=== PATIENT | male | born 1970 | race Caucasian/White ===

== ENCOUNTER 2016-07-27 21:49 | Emergency (ER) | payer MEDICAID ==
--- NOTE | 2016-07-27 22:17 | Emergency Department Record ---
History of Present Illness - General Chief Complaint: Neck Injury/Pain Stated Complaint: LEFT SHOULDER PAIN Time Seen by Provider: 07/27/16 22:12 Source: Patient Mode of Arrival: Ambulatory Limitations: No limitations - History of Present Illness Initial Comments: 45 yo male presents with neck pain after injury at noon today. He stood up and hit a shelf. He has had increasing pain since. He had neck surgery in the past of herniated disc. No numbness or tingling. No weakness. He has bilateral chronic rotator cuff tears. No new shoulder injuries. He is working with an orthopedist in [place] to schedule rotator cuff repair. MD Complaint: Neck injury, Neck pain Onset/Timin -: Days(s) Severity: Constant Severity scale (1-10): 10 Quality: Aching Improves With: None Worsens With: Movement of neck Context: Direct blow Associated Symptoms: None Treatments Prior to Arrival: None - Related Data Home Medications Medication Instructions Recorded Confirmed Last Taken Lisinopril [Zestril] 40 mg PO DAILY 07/27/16 07/27/16 Unknown Metformin HCl 1,000 mg PO BID 07/27/16 07/27/16 Unknown Allergies Allergy/AdvReac Type Severity Reaction Status Date / Time No Known Drug Allergies Allergy Verified 07/27/16 22:01 Travel Screening - Travel/Exposure Within Last 30 Days Have you traveled within the last 30 days?: No Review of Systems Constitutional: Denies: Chills, Fever, Malaise, Weakness Eyes: Denies: Eye discharge ENT: Denies: Congestion, Throat pain Respiratory: Denies: Cough, Dyspnea, Hemoptysis, Stridor, Wheezes Cardiovascular: Denies: Chest pain, Palpitations, Syncope Endocrine: Denies: Fatigue Gastrointestinal: Denies: Abdominal pain, Diarrhea, Nausea, Vomiting Genitourinary: Denies: Dysuria, Frequency, Hematuria Musculoskeletal: Reports: As per HPI, Arthralgia, Myalgia, Neck pain Skin: Denies: Bruising, Change in color, Rash Neurological: Denies: Abnormal gait, Confusion, Headache, Numbness, Paresthesias , Tingling, Tremors, Vertigo, Weakness Psychiatric: Denies: Anxiety Hematological/Lymphatic: Denies: Anemia, Blood Clots, Easy bleeding, Easy bruising, Swollen glands Past Medical History - SOCIAL HISTORY Smoking Status: Current every day smoker Alcohol Use: Occassional Drug Use: None - RESPIRATORY Hx Respiratory Disorders: No - CARDIOVASCULAR Hx Cardio Disorders: Yes Hx Hypertension: Yes - NEURO Hx Neuro Disorders: No - GI Hx GI Disorders: Yes Hx Reflux: Yes - Hx Genitourinary Disorders: No - ENDOCRINE Hx Endocrine Disorders: Yes Hx Diabetes: Yes (DM2) - MUSCULOSKELETAL Hx Musculoskeletal Disorders: No - PSYCH Hx Psych Problems: No - HEMATOLOGY/ONCOLOGY Hx Hematology/Oncology Disorders: No Family Medical History Any Significant Family History?: No Physical Exam - General General Appearance: Alert, Oriented x3, Cooperative, No acute distress Limitations: No limitations - Head Head exam: Normocephalic, Normal inspection. negative: Atraumatic Head exam detail: Abrasion (3mm superficial scalp abrasion, no swelling). negative: General tenderness, Laceration - Eye Eye exam: Normal appearance, PERRL. negative: Conjunctival injection - ENT ENT exam: Normal exam. negative: Mucous membranes moist Ear exam: Normal external inspection Nasal Exam: Normal inspection Mouth exam: Normal external inspection Teeth exam: Normal inspection Throat exam: Normal inspection. negative: Tonsillar erythema, Tonsillomegaly - Neck Neck exam: Normal inspection, Full ROM, Tenderness. negative: Lymphadenopathy, Meningismus, Thyromegaly - Respiratory Respiratory exam: Normal lung sounds bilaterally. negative: Accessory muscle use, Chest wall tenderness, Decreased breath sounds, Respiratory distress, Rhonchi, Stridor, Wheezes - Cardiovascular Cardiovascular Exam: negative: Regular rate, Normal rhythm, Normal heart sounds - GI/Abdominal GI/Abdominal exam: Soft - Rectal Rectal exam: Deferred - exam: Deferred - Extremities Extremities exam: Normal inspection, Normal capillary refill, Tenderness. negative: Full ROM Image of Full Body: 1 - Bilateral shoulder tenderness, pain with ROM, no deformity. These are chronic issues the patient states. No new changes. - Back Back exam: Reports: Normal inspection, Full ROM. Denies: Muscle spasm, Paraspinal tenderness, Tenderness, Vertebral tenderness - Neurological Neurological exam: Alert, Normal gait, Oriented X3. negative: Abnormal gait, Altered, Motor sensory deficit - Psychiatric Psychiatric exam: Normal affect, Normal mood. negative: Agitated, Anxious - Skin Skin exam: Dry, Intact, Normal color, Warm Course Vital Signs 07/27/16 21:56 Temperature 98 F Pulse Rate [ 113 H Pulse Ox Probe] Respiratory 20 Rate Blood Pressure 166/95 [Right Arm] Pulse Ox 98 - Reevaluation(s) Reevaluation #1: EMR reviewed No prior visits [facility] reviewed. No pattern of abuse. Last entry was [place] 12. 07/27/16 22:22 Reevaluation #2: CT from [facility] reviewed No definite fracture, degenerative changes, disc bulge eccentric to the right C4 -C5 with mild spinal canal stenosis. Mild stenosis on C5-C6 Fusion at C6-C7 no acute fracture. I called [facility] to clarify the report. "And T1 spinous process fracture" Dr Shannon stated it was mis-dictated and should read "chronic T1 spinous process fracture" 07/27/16 23:16 Disposition Disposition: Discharge Clinical Impression: Cervical strain, acute Qualifiers: Encounter type: initial encounter Qualified Code(s): S16.1XXA - Strain of muscle, fascia and tendon at neck level, initial encounter Disposition: Home, Self-Care Condition: (1) Good Instructions: Cervical Sprain (ED) Additional Instructions: Call your family doctor tomorrow for close follow Rest Avoid lifting or heavy exercise Seek medical care if worse, weak, numb or any new symptoms. not currently present Forms: Patient Portal Access Time of Disposition: 23:22
[2016-07-27] MEDS ORDERED: KETOROLAC 30 MG/ML VIAL IM ONE (22:20)
[2016-07-27] MEDS ORDERED: HYDROCODONE/APAP 5/325MG TABLET PO ONE (23:25)
== END 2016-07-27 23:31 | disposition home or self-care (01) ==
LOC: ER 21:49
DX: S16.1XXA Strain of muscle, fascia and tendon at neck level, initial encounter (principal); M25.512 Pain in left shoulder; M25.511 Pain in right shoulder; W22.8XXA Striking against or struck by other objects, initial encounter
CPT/HCPCS: 72125; 96372; 99283; 99284; J1885